=== PATIENT | male | born 1980 | race Hispanic/Latino ===

== ENCOUNTER 2023-11-30 08:53 | Emergency (ER) | payer SELFPAY ==
[2023-11-30] MEDS ORDERED: Lidocaine 1% w/Epinephrine 1:100K 20 ML VIAL ONE (09:51)
[2023-11-30] MEDS ORDERED: HYDROcodone/Acetaminophen 5/325 mg Tablet ONE (10:01)
[2023-11-30] MEDS ORDERED: CEFAZOLIN 1 GM VIAL ONE (10:02)
[2023-11-30] MEDS ORDERED: Sterile Water 10 ML ONE (10:02)
[2023-11-30 10:16] LABS: #Basophils 0.03 10x3/uL (0.0-0.2); %Basophils 0.5 % (0.0-1.0); %Eosinophils 5.3 % (0.0-10.0); %Lymphocytes 33.1 % (21.0-51.0); %Monocytes 7.5 % (0.0-10.0); %Neutrophils 53.4 % (42.0-75.0); Hematocrit 48.4 % (42.0-52.0); Mean Corpuscular HGB CONC 35.1 g/dL (32.0-36.0); Mean Corpuscular Volume 88.3 fL (78.0-98.0); Mean Platelet Volume 10.5 fL (7.4-10.4); Platelet Count 229 10x3/uL (130-400); RBC Distribution Width 13.2 % (11.5-14.5); Red Blood Cell (RBC) Count 5.48 mill/uL (4.70-6.10)
[2023-11-30] MEDS ORDERED: Bacitracin 1 PK ONE (12:43)
== END 2023-11-30 13:32 | disposition home or self-care (01) ==
LOC: ERS 08:53
DX: S61.411A Laceration without foreign body of right hand, initial encounter (principal); E11.9 Type 2 diabetes mellitus without complications; F17.210 Nicotine dependence, cigarettes, uncomplicated; W25.XXXA Contact with sharp glass, initial encounter; Z79.84 Long term (current) use of oral hypoglycemic drugs
CPT/HCPCS: 12002; 36415; 85025; 96372; 99283; J0690

== ENCOUNTER 2023-12-11 08:54 | Emergency (ER) | payer SELFPAY ==
[2023-12-11] MEDS ORDERED: Doxycycline 100 MG CAP ONE (09:21)
== END 2023-12-11 09:20 | disposition home or self-care (01) ==
LOC: ERS 08:54
DX: L03.113 Cellulitis of right upper limb (principal); T81.30XA Disruption of wound, unspecified, initial encounter; E11.9 Type 2 diabetes mellitus without complications; F17.210 Nicotine dependence, cigarettes, uncomplicated
CPT/HCPCS: 99283